=== PATIENT | male | born 1945 | race Asian ===

== ENCOUNTER 2021-01-18 17:12 | Inpatient (IN) | payer OTHER ==
[~2021-01-18] VITALS: Ht 165.1 cm; Wt 79.5 kg
[2021-01-18 17:54] LABS: Basophils # (auto) 0 10 ^3/uL (0-0.2); Basophils % (auto) 0.5 % (0.0-2.0); Eosinophils # (auto) 0.9 10 ^3/uL (0-0.8); Eosinophils % (auto) 9.3 % (0.0-7.0); Hematocrit 39.7 % (41.0-53.0); Lymphocytes # (auto) 2.2 10 ^3/uL (0.4-5.4); Lymphocytes % (auto) 23.2 % (10.0-50.0); Mean Corpuscular Hemoglobin 32.6 pg (28.0-32.0); Mean Corpuscular Hgb Conc. 35.1 g/dL (32.0-36.0); Mean Corpuscular Volume 92.7 fL (80.0-100.0); Monocytes # (auto) 0.7 10 ^3/uL (0-1.3); Monocytes % (auto) 7.5 % (0.0-12.0); Neutrophils # (auto) 5.6 10 ^3/uL (1.6-8.6); Neutrophils % (auto) 59.5 % (37.0-80.0); Nucleated Red Blood Cells % 0.1 %; Red Blood Cells 4.29 10^6/uL (4.5-5.90); Red Cell Distribution Width 12.8 % (11.8-14.3); White Blood Cell 9.3 10^3/uL (4.4-10.8)
[2021-01-18 18:14] LABS: Albumin 3.5 g/dL (3.4-5.0); Anion Gap 5 (5-15); Blood Urea Nitrogen 35 mg/dL (7-18); Calcium 8.1 mg/dL (8.5-10.1); Carbon Dioxide 26 mmol/L (21-32); Chloride 110 mmol/L (98-107); Glucose 104 mg/dL (74-106); Sodium 141 mmol/L (136-145)
[2021-01-18 18:20] LABS: Alanine Aminotransferase 30 U/L (16-61); Alkaline Phosphatase 62 U/L (45-117); Aspartate Aminotransferase 20 U/L (15-37); BUN/Creatinine Ratio 23.3; Bilirubin, Total 0.6 mg/dL (0.2-1.0); GFR African American 59 mL/min; GFR Non-African American 48 mL/min; Total Protein 7.3 g/dL (6.4-8.2)
[2021-01-18] MEDS ORDERED: TEMAZEPAM 15 MG CAP PO PRN (21:15)
[2021-01-18] MEDS ORDERED: ONDANSETRON HCL 4 MG/2 ML VIAL IV PRN (21:15)
[2021-01-18] MEDS ORDERED: ACETAMINOPHEN 325 MG TAB PO PRN (21:15)
[2021-01-18] MEDS ORDERED: DexAMETHasone SOD PHOS 10MG/1ML VIAL INJ IV ONE (21:15)
[2021-01-18 22:05] VITALS: BP 138/72
[2021-01-19] VITALS (7 sets, daily range): BP systolic 120–146; BP diastolic 68–72
[2021-01-19] MEDS ORDERED: ALEN35TA18 PO (01:36)
[2021-01-19] MEDS ORDERED: OYST500T48 OR (01:36)
[2021-01-19] MEDS ORDERED: FURO1TAB33 PO (01:36)
[2021-01-19] MEDS ORDERED: AZIT250T8 PO (01:36)
[2021-01-19] MEDS ORDERED: MONT-8 PO (01:36)
[2021-01-19] MEDS ORDERED: ICOS1CAP OR (01:36)
[2021-01-19] MEDS ORDERED: SIMV-13 PO (01:36)
[2021-01-19] MEDS ORDERED: PROM2SYP2 PO (01:36)
[2021-01-19] MEDS ORDERED: LOSA-39 PO (01:36)
[2021-01-19] MEDS ORDERED: ATEN-60 PO (01:36)
[2021-01-19] MEDS: guaiFENesin-DM 100/10mg/5ml SYR PO PRN ×2 (02:11→10:37)
[2021-01-19 08:16] LABS: Basophils # (auto) 0 10 ^3/uL (0-0.2); Basophils % (auto) 0.6 % (0.0-2.0); Eosinophils # (auto) 0.7 10 ^3/uL (0-0.8); Hematocrit 40.2 % (41.0-53.0); Hemoglobin 14.2 g/dL (13.5-17.5); Lymphocytes # (auto) 1.9 10 ^3/uL (0.4-5.4); Lymphocytes % (auto) 23.1 % (10.0-50.0); Mean Corpuscular Hemoglobin 32.6 pg (28.0-32.0); Mean Corpuscular Hgb Conc. 35.4 g/dL (32.0-36.0); Mean Corpuscular Volume 92.1 fL (80.0-100.0); Monocytes # (auto) 0.6 10 ^3/uL (0-1.3); Neutrophils # (auto) 4.9 10 ^3/uL (1.6-8.6); Neutrophils % (auto) 60.3 % (37.0-80.0); Nucleated Red Blood Cells % 0.1 %; Red Blood Cells 4.36 10^6/uL (4.5-5.90); Red Cell Distribution Width 12.7 % (11.8-14.3); White Blood Cell 8.2 10^3/uL (4.4-10.8)
[2021-01-19 08:32] LABS: BUN/Creatinine Ratio 24.3; Calcium 8.7 mg/dL (8.5-10.1)
[2021-01-19] MEDS ORDERED: PNEUMOCOCCAL VACC POLYS 25 MCG/0.5 ML VIAL IM ONE (09:00)
[2021-01-19] MEDS ORDERED: DexAMETHasone SOD PHOS 10MG/1ML VIAL INJ IV SCH (10:00)
[2021-01-19] MEDS ORDERED: ENOXAPARIN SOD 40 MG/0.4 ML SYRINGE SC SCH (10:00)
[2021-01-19] MEDS: cefTRIAXone 1GM/50ML D5W 50 ML IV SCH (10:37)
[2021-01-19] MEDS: AZITHROMYCIN 500MG/ 250ML 250 ML IV SCH (10:37)
[2021-01-19] MEDS ORDERED: FUROSEMIDE 20 MG/2 ML VIAL IV ONE (11:15)
[2021-01-19] MEDS: ALBUTEROL SULF 2.5 MG/0.5ML(0.5%) NEB SOLN NEB SCH ×2 (11:33→19:06)
[2021-01-19] MEDS: IPRATROPIUM BROM 0.5 MG/2.5ML INH SOL NEB SCH ×2 (11:33→19:06)
[2021-01-19 16:11] LABS: Urine Bacteria NONE SEEN /hpf (None Seen); Urine Blood Negative /uL (Negative); Urine Specific Gravity 1.015 (1.001-1.035); Urine WBC <1 /hpf (0 - 3)
[2021-01-20 05:13] VITALS: BP 112/64
[2021-01-20 05:40] LABS: BUN/Creatinine Ratio 30.6; Calcium 8.4 mg/dL (8.5-10.1); Potassium 3.8 mmol/L (3.5-5.1)
[2021-01-20] MEDS: ALBUTEROL SULF 2.5 MG/0.5ML(0.5%) NEB SOLN NEB SCH ×3 (06:03→19:27)
[2021-01-20] MEDS: IPRATROPIUM BROM 0.5 MG/2.5ML INH SOL NEB SCH ×3 (06:03→19:28)
[2021-01-20 09:00] VITALS: BP 129/67
[2021-01-20] MEDS: cefTRIAXone 1GM/50ML D5W 50 ML IV SCH (09:45)
[2021-01-20] MEDS ORDERED: FUROSEMIDE 20 MG TAB PO ONE (10:30)
[2021-01-20 13:00] VITALS: BP 133/71
[2021-01-20] MEDS: AZITHROMYCIN 500MG/ 250ML 250 ML IV SCH (14:02)
[2021-01-20 14:42] LABS: Creatinine, Urine 17 mg/dL (30.0-125.0); Protein, Urine < 5.0 mg/dL (0.0-11.9); Sodium Urine 134 mmol/L (40-220)
[2021-01-20 17:00] VITALS: BP 127/75
[2021-01-20 20:00] VITALS: BP 127/66
[2021-01-20 22:00] VITALS: BP 127/66
[2021-01-21 05:00] VITALS: BP 125/69
[2021-01-21 05:42] LABS: BUN/Creatinine Ratio 26.2; Calcium 8.3 mg/dL (8.5-10.1); Potassium 3.5 mmol/L (3.5-5.1)
[2021-01-21] MEDS: IPRATROPIUM BROM 0.5 MG/2.5ML INH SOL NEB SCH ×2 (05:53→14:21)
[2021-01-21] MEDS: ALBUTEROL SULF 2.5 MG/0.5ML(0.5%) NEB SOLN NEB SCH ×2 (05:54→14:21)
[2021-01-21 08:00] VITALS: BP 128/76
[2021-01-21 09:00] VITALS: BP 128/76
[2021-01-21] MEDS: cefTRIAXone 1GM/50ML D5W 50 ML IV SCH (09:15)
[2021-01-21] MEDS ORDERED: AZITHROMYCIN 250 MG TAB PO SCH (10:00)
[2021-01-21] MEDS ORDERED: FUROSEMIDE 20 MG TAB PO SCH (10:00)
[2021-01-21 13:00] VITALS: BP 136/78
== END 2021-01-21 15:38 | disposition home or self-care (01) | DRG 291 ==
LOC: ER 17:12 → OVERFLOW 21:02 → CENTRAL 22:05
PROVIDERS: ADMIT Nurse Practitioner; ATTEND Internal Medicine
DX: I13.0 Hypertensive heart and chronic kidney disease with heart failure and stage 1 through stage 4 chronic kidney disease, or unspecified chronic kidney disease (principal); N17.0 Acute kidney failure with tubular necrosis; I50.33 Acute on chronic diastolic (congestive) heart failure; Z20.822 Contact with and (suspected) exposure to COVID-19; N18.30 Chronic kidney disease, stage 3 unspecified; I25.10 Atherosclerotic heart disease of native coronary artery without angina pectoris; E78.5 Hyperlipidemia, unspecified; I70.0 Atherosclerosis of aorta; R79.89 Other specified abnormal findings of blood chemistry; Z79.899 Other long term (current) drug therapy; Z98.49 Cataract extraction status, unspecified eye; J45.909 Unspecified asthma, uncomplicated
CPT/HCPCS: 36415; 71046; 76775; 80048; 80053; 81001; 82570; 83036; 83880; 84156; 84300; 84484; 85025; 85379; 87426; 93005; 93306; 93970; 94640; 96374; G0378; J0696; J1100